=== PATIENT | female | born 1995 | race African-American/Black ===

== ENCOUNTER 2024-05-15 17:55 | Emergency (ER) | payer SELFPAY ==
[2024-05-15 18:31] LABS: #Basophils Less than 0.03 10x3/uL (0.0-0.2); %Basophils 0.3 % (0.0-1.0); %Eosinophils 1.7 % (0.0-10.0); %Lymphocytes 30.1 % (21.0-51.0); %Monocytes 7.9 % (0.0-10.0); %Neutrophils 59.7 % (42.0-75.0); Hematocrit 32.2 % (36.0-47.0); Hemoglobin 9.6 g/dL (12.0-16.0); Mean Corpuscular HGB CONC 29.8 g/dL (32.0-36.0); Mean Corpuscular Hemoglobin 23.3 pg (27.0-31.0); Mean Corpuscular Volume 78.2 fL (78.0-98.0); Mean Platelet Volume 10.2 fL (7.4-10.4); Platelet Count 307 10x3/uL (130-400); RBC Distribution Width 20.4 % (11.5-14.5); Red Blood Cell (RBC) Count 4.12 mill/uL (4.20-5.40)
[2024-05-15 18:45] LABS: Anion Gap 14 mmol/L (10-20); BUN (Urea Nitrogen) 13 mg/dL (7.0-18.7); Calc. Creatinine Clearance 0 mL/min (70-130); Calcium 9.7 mg/dL (7.8-10.44); Carbon Dioxide 24 mmol/L (22-29); Chloride 102 mmol/L (98-107); Estimated GFR 126; Glucose 95 mg/dL (70-105); Lipase 27 U/L (8-78); Potassium 3.9 mmol/L (3.5-5.1); Sodium 136 mmol/L (136-145)
[2024-05-15 20:58] LABS: Bacteria/HPF None Seen HPF (None Seen); Bilirubin Negative (Negative); Blood, Urine 3+ (Negative); CAUTI Indications for Culture Dysuria,urgency,freq; Clarity Clear (Clear); Glucose, Urine (Dipstick) Normal (Negative); Ketone, Urine Negative (Negative); Leukocyte 75 Leu/uL (Negative); Nitrite Negative (Negative); Protein, Urine (Dipstick) Negative (Neg-Trace); RBC/HPF 0-3 HPF (0-3); Specific Gravity, Urine 1.017 (1.002-1.036); Urobilinogen Normal mg/dL (Less than 2); pH, Urine 6.5 (5.0-9.0)
[2024-05-15 20:59] LABS: Urine Culture Reflex No No
== END 2024-05-15 21:40 | disposition home or self-care (01) ==
LOC: ERS 17:55
DX: O20.0 Threatened abortion (principal); Z3A.08 8 weeks gestation of pregnancy
CPT/HCPCS: 36415; 76856; 80048; 81001; 83690; 84702; 85025; 86900; 86901; 87086

== ENCOUNTER 2024-11-27 22:24 | Emergency (ER) | payer MEDICAID ==
[2024-11-27 23:33] LABS: CAUTI Indications for Culture Pelvic or flank pain; Glucose, Urine (Dipstick) Normal (Negative); Leukocyte Negative Leu/uL (Negative); Protein, Urine (Dipstick) Negative (Neg-Trace); RBC/HPF 0-3 HPF (0-3); Specific Gravity, Urine 1.018 (1.002-1.036); WBC/HPF 0-3 HPF (0-3)
[2024-11-27 23:34] LABS: Bacteria/HPF 1+ HPF (None Seen)
[2024-11-27 23:35] LABS: Urine Culture Reflex No No
[2024-11-27 23:55] LABS: #Basophils Less than 0.03 10x3/uL (0.0-0.2); #Eosinophils 0.10 10x3/uL (0.0-0.7); #Monocytes 0.40 10x3/uL (0.11-0.59); #Neutrophils 2.10 10x3/uL (1.40-6.50); %Basophils 0.4 % (0.0-1.0); %Eosinophils 2.2 % (0.0-10.0); %Lymphocytes 41.7 % (21.0-51.0); %Monocytes 8.9 % (0.0-10.0); %Neutrophils 46.6 % (42.0-75.0); BHCG - Serum Negative (NEGATIVE); Hematocrit 25.9 % (36.0-47.0); Hemoglobin 7.3 g/dL (12.0-16.0); Mean Corpuscular Hemoglobin 20.5 pg (27.0-31.0); Mean Corpuscular Volume 72.8 fL (78.0-98.0); Platelet Count 158 10x3/uL (130-400); Pregs Control Background? CLEAR/WHITE (CLR/WHITE); Pregs Control Bar Appear? YES (CONTROL BAR); Red Blood Cell (RBC) Count 3.56 mill/uL (4.20-5.40); White Blood Cell (WBC) Count 4.51 10x3/uL (4.8-10.8)
[2024-11-28 00:08] LABS: ALT (SGPT) 9 U/L (Less than 34); AST (SGOT) 19 U/L (11-34); Albumin 4.5 g/dL (3.1-4.5); Alkaline Phosphatase 46 U/L (40-110); Anion Gap 16 mmol/L (10-20); BUN (Urea Nitrogen) 15 mg/dL (7.0-18.7); Bilirubin, Total 0.1 mg/dL (0.3-1.2); Calc. Creatinine Clearance 0 mL/min (70-130); Calcium 9.2 mg/dL (7.8-10.44); Carbon Dioxide 20 mmol/L (22-29); Chloride 106 mmol/L (98-107); Globulin 3.1 g/dL (2.4-3.5); Glucose 99 mg/dL (70-105); Lipase 25 U/L (8-78); Potassium 3.8 mmol/L (3.5-5.1); Sodium 138 mmol/L (136-145)
[2024-11-28] MEDS ORDERED: Ketorolac Tromethamine 30 MG (1 mL) VIAL ONE (00:10)
[2024-11-28 02:02] LABS: Anisocytosis SLIGHT = 6-15 cells HPF (0-5); Microcytosis SLIGHT = 6-15 cells HPF (0-5); Platelet Adequacy Comment Platelets Normal; Polychromasia SLIGHT = 2-3 cells HPF (0-2)
== END 2024-11-28 01:30 | disposition home or self-care (01) ==
LOC: ERS 22:24
DX: R10.30 Lower abdominal pain, unspecified (principal); D64.9 Anemia, unspecified; F17.290 Nicotine dependence, other tobacco product, uncomplicated
CPT/HCPCS: 36415; 76856; 80053; 81001; 83690; 84703; 85025; 96372; J1885

== ENCOUNTER 2024-12-07 20:37 | Emergency (ER) | payer MEDICAID ==
[2024-12-07] MEDS ORDERED: Acetaminophen 325 MG TAB ONE (22:41)
[2024-12-07] MEDS ORDERED: HYDROcodone/Acetaminophen 10/325 mg Tablet ONE (22:50)
== END 2024-12-07 22:53 | disposition home or self-care (01) ==
LOC: ERS 20:37
DX: K03.81 Cracked tooth (principal); K08.89 Other specified disorders of teeth and supporting structures
CPT/HCPCS: 99282

== ENCOUNTER 2024-12-10 18:38 | Emergency (ER) | payer MEDICAID ==
[2024-12-10] MEDS ORDERED: Ketorolac Tromethamine 30 MG (1 mL) VIAL ONE (21:20)
== END 2024-12-10 21:37 | disposition home or self-care (01) ==
LOC: ERS 18:38
DX: K08.89 Other specified disorders of teeth and supporting structures (principal)
CPT/HCPCS: 96372; 99282; J1885

== ENCOUNTER 2025-01-04 20:39 | Emergency (ER) | payer MEDICAID ==
[~2025-01-04 20:39] MED LIST: Iopamidol-370 76% 500 ML MDV (1 ML CHARGE) ONE
[2025-01-04 21:39] LABS: Pregnancy Test - Urine (BHCG) Negative (Negative); Pregu Control Background? CLEAR/WHITE (CLR/WHITE); Pregu Control Bar Appear? YES (CONTROL BAR)
[2025-01-04 21:47] LABS: Bacteria/HPF None Seen HPF (None Seen); CAUTI Indications for Culture Pelvic or flank pain; Glucose, Urine (Dipstick) Normal (Negative); Leukocyte Negative Leu/uL (Negative); Protein, Urine (Dipstick) Negative (Neg-Trace); RBC/HPF 0-3 HPF (0-3); Specific Gravity, Urine 1.005 (1.002-1.036); WBC/HPF 0-3 HPF (0-3)
[2025-01-04 21:51] LABS: Urine Culture Reflex No No
[2025-01-04] MEDS ORDERED: Ketorolac Tromethamine 30 MG (1 mL) VIAL ONE (23:01)
[2025-01-04] MEDS ORDERED: Mag-Al 1200 mg/1200 mg/30 ML UDCUP ONE (23:01)
[2025-01-04] MEDS ORDERED: Lidocaine Viscous Sol 2% 15 ml UD Cup ONE (23:01)
[2025-01-04 23:08] LABS: #Basophils Less than 0.03 10x3/uL (0.0-0.2); #Eosinophils 0.17 10x3/uL (0.0-0.7); #Monocytes 0.46 10x3/uL (0.11-0.59); #Neutrophils 5.06 10x3/uL (1.40-6.50); %Basophils 0.3 % (0.0-1.0); %Eosinophils 2.3 % (0.0-10.0); %Lymphocytes 21.3 % (21.0-51.0); %Monocytes 6.3 % (0.0-10.0); %Neutrophils 69.4 % (42.0-75.0); Hematocrit 25.5 % (36.0-47.0); Hemoglobin 6.8 g/dL (12.0-16.0); Mean Corpuscular Hemoglobin 19.2 pg (27.0-31.0); Mean Corpuscular Volume 72.0 fL (78.0-98.0); Platelet Count 81 10x3/uL (130-400); Red Blood Cell (RBC) Count 3.54 mill/uL (4.20-5.40); White Blood Cell (WBC) Count 7.29 10x3/uL (4.8-10.8)
[2025-01-04 23:19] LABS: ALT (SGPT) Less than 7 U/L (Less than 34); AST (SGOT) 14 U/L (11-34); Albumin 3.7 g/dL (3.1-4.5); Alkaline Phosphatase 44 U/L (40-110); Anion Gap 17 mmol/L (10-20); BUN (Urea Nitrogen) 5 mg/dL (7.0-18.7); Bilirubin, Total 0.1 mg/dL (0.3-1.2); Calc. Creatinine Clearance 0 mL/min (70-130); Calcium 8.5 mg/dL (7.8-10.44); Carbon Dioxide 21 mmol/L (22-29); Chloride 101 mmol/L (98-107); Globulin 2.9 g/dL (2.4-3.5); Glucose 91 mg/dL (70-105); Lipase 45 U/L (8-78); Potassium 3.5 mmol/L (3.5-5.1); Sodium 135 mmol/L (136-145)
[2025-01-04 23:28] LABS: Anisocytosis SLIGHT = 6-15 cells HPF (0-5); Microcytosis SLIGHT = 6-15 cells HPF (0-5); Platelet Adequacy Comment Platelets Decreased; Polychromasia SLIGHT = 2-3 cells HPF (0-2); Target Cells SLIGHT = 2-5 cells HPF (0-1)
[2025-01-05] MEDS ORDERED: Dicyclomine 20 MG TAB ONE (00:14)
== END 2025-01-05 05:30 | disposition home or self-care (01) ==
LOC: ERS 20:39
DX: R10.30 Lower abdominal pain, unspecified (principal); D64.9 Anemia, unspecified; D69.6 Thrombocytopenia, unspecified
CPT/HCPCS: 36415; 36430; 74177; 80053; 81001; 81025; 83690; 85025; 86850; 86900; 86901; 96374; J1885; P9016; Q9967